=== PATIENT | male | born 1950 | race Caucasian/White ===

== ENCOUNTER → 2017-08-12 | Outpatient (CLI) | payer OTHER ==
[~2017-08-12] MED LIST: ACIPHEX20 MG PO; ADULT LOW DOSE81 MG PO; ANDROGEL2.5 GM TOP; AXIRON30 MG/1.5 TOP; LISINOPRIL10 MG PO; NEXIUM40 MG PO; PLAVIX75 MG PO; PROZAC10 MG PO; PROZAC20 MG PO; SAW PALMETTO450 MG PO; STOOL SOFTENER
--- NOTE | 2017-08-12 12:51 | Diagnostic Imaging Report ---
PROCEDURE:X-RAY UNILATERAL RIBS WITH CHEST X-RAY COMPARISON:None. INDICATIONS:LEFT SIDE RIB PAIN FINDINGS: BONES: Normal mineralization. No acute displaced fracture or dislocation. SOFT TISSUES:Negative. OTHER:Cardiac silhouette is normal in size. Aortic arch calcifications. No pleural effusions or pneumothorax. No focal consolidations. CONCLUSION: No acute displaced rib fractures. Dictated by: Terence Gibson M.D. on 08/12/2017 at 12:51 Electronically approved by: Teernce Gibson M.D. on 08/12/2017 at 12:51
== END ==
LOC: RAD 11:54
PROVIDERS: ATTEND Family Medicine
DX: S20.212A Contusion of left front wall of thorax, initial encounter (principal)
CPT/HCPCS: 71101

== ENCOUNTER → 2017-08-23 | Outpatient (CLI) | payer OTHER ==
--- NOTE | 2017-08-23 12:54 | Diagnostic Imaging Report ---
TECHNIQUE: Magnetic resonance imaging of the LEFT KNEE was performed WITHOUT injected contrast. HISTORY: Left knee pain COMPARISON: None available. FINDINGS: LIGAMENTS AND TENDONS: ACL: Intact PCL: Intact Collateral ligaments: Intact Iliotibial band: Unremarkable Popliteal tendon: Intact Extensor mechanism: Intact JOINT: Menisci: Medial: Complex tearing of the body and posterior horn. Horizontal component with flipped fragment of the posterior body into the meniscotibial recess on coronal image 13 and radial component to the posterior horn coronal image, 15 sagittal 28, and axial 23 Lateral: Intact Articular Cartilage: Medial Compartment: Diffuse high-grade cartilage loss with areas of full-thickness erosion and subchondral edema of the tibial plateau. Lateral Compartment: No focal defect. Patellofemoral Compartment: Partial-thickness cartilage loss Joint Fluid: Trace joint fluid. Minimal Fernandez's cyst. BONE: No focal or infiltrative bone marrow replacing abnormality. No acute fracture. SOFT TISSUES: Otherwise, unremarkable. IMPRESSION: Medial meniscus complex tearing as above with meniscal extrusion, high-grade cartilage loss, and subchondral edema. Signed by: Dr. Santi Banuelos M.D. on 08/23/2017 12:50 PM
== END ==
LOC: MRI 10:55
PROVIDERS: ATTEND Family Medicine
DX: S20.212A Contusion of left front wall of thorax, initial encounter (principal)

== ENCOUNTER 2019-02-09 11:10 | Observation (INO) | payer MEDICARE, OTHER ==
[~2019-02-09] VITALS: Ht 175.3 cm; Wt 96.6 kg
--- OUTSIDE RECORDS SUMMARY | 2019-02-09 11:13 | XMS REPORT ---
Author Author [facility] Address Unknown Phone Unavailable Care Team Providers Care Music Professor Name Role Phone FELIPE HARKINS Unavailable Unavailable Problems This patient has no known problems. Allergies, Adverse Reactions, Alerts This patient has no known allergies or adverse reactions. Medications This patient has no known medications. Results Test Description Test Time Test Comments Text Results Atomic Results Result Comments MRI KNEE LEFT WO [address] [address] Patient Name: LADY GUZMAN MR #: [id number] : 1950 Age/Sex: 66/M Req #: [id number] Adm Physician: Ordered by: FELIPE HARKINS MD Report #: [id number] Location: MRI Room/Bed: Procedure: [id number] MRI/MRI KNEE LEFT WO Exam Date: Exam Time: REPORT STATUS: Signed TECHNIQUE: Magnetic resonance imaging of the LEFT KNEE was performed WITHOUT injected contrast. HISTORY: Left knee pain COMPARISON: None available. FINDINGS: LIGAMENTS AND TENDONS: ACL: Intact PCL: Intact Collateral ligaments: Intact Iliotibial band: Unremarkable Popliteal tendon: Intact Extensor mechanism: Intact JOINT: Menisci: Medial: Complex tearing of the body and posterior horn. Horizontal component with flipped fragment of the posterior body into the meniscotibial recess on coronal image 13 and radial component to the posterior horn coronal image, 15 sagittal 28, and axial 23 Lateral: Intact Articular Cartilage: Medial Compartment: Diffuse high- grade cartilage loss with areas of full-thickness erosion and subchondral edema of the tibial plateau. Lateral Compartment: No focal defect. Patellofemoral Compartment: Partial-thickness cartilage loss Joint Fluid: Trace joint fluid. Minimal Fernandez's cyst. BONE: No focal or infiltrative bone marrow replacing abnormality. No acute fracture. SOFT TISSUES: Otherwise, unremarkable. IMPRESSION: Medial meniscus complex tearing as above with meniscal extrusion, high-grade cartilage loss, and subchondral edema. Signed by: Dr. Sally Morgan M.D. on 08/23/2017 12:50 PM Dictated By: SALLY MORGAN MD 1250 Transcribed By: TOM on 08/23/17 1250 COPY TO: FELIPE HARKINS MD W/CXR [place] [address] Patient Name: LADY GUZMAN MR #: [id number] : 1950 Age/Sex: 66/M Req #: [id number] Adm Physician: Ordered by: FELIPE HARKINS MD Report #: [id number] Location: [facility] Room/Bed: Procedure: [id number] DX/GRAHAM VELASQUEZ W/CXR Exam Date: 08/12/17 Exam Time: 1220 REPORT STATUS: Signed PROCEDURE: X-RAY UNILATERAL RIBS WITH CHEST X-RAY COMPARISON: None. INDICATIONS: LEFT SIDE RIB PAIN FINDINGS: BONES: Normal mineralization. No acute displaced fracture or dislocation. SOFT TISSUES: Negative. OTHER: Cardiac silhouette is normal in size. Aortic arch calcifications. No pleural effusions or pneumothorax. No focal consolidations. CONCLUSION: No acute displaced rib fractures. Dictated by: Terence Sin M.D. on 08/12/2017 at 12:51 Electronically approved by: Terence Sin M.D. on 08/12/2017 at 12:51 Dictated By: TERENCE SIN MD 1251 Transcribed By: VIDHYA on 08/12/17 1251 COPY TO: FELIPE HARKINS MD
--- OUTSIDE RECORDS SUMMARY | 2019-02-09 11:13 | XMS REPORT | Summary of Care ---
Author Author [facility] Organization [facility] Address Unknown Phone Unavailable Care Team Providers Care Publications Designer Name Role Phone PCP Unavailable Reason for Visit * Reason Comments Follow Up Encounter Details Care Team Description Date Type Department Chelsie Gordon OD 1976 [facility] [address] [place] [address] Follow Up 12/28/2018 Office Visit [facility] Ophthalmology [address] [place] [address] Allergies Comments Active Allergy Reactions Severity Noted Date Other Hives 01/04/2015 Sulfa Drugs Cross 03/26/2011 Reactors documented as of this encounter (statuses as of 12/28/2018) Medications End Date Status Medication Sig Dispensed Refills Start Date Active lisinopril (PRINIVIL, Take 10 mg by 0 ZESTRIL) 10 MG tablet mouth daily. Active Testosterone (ANDROGEL Place onto 0 TD) the skin. Active lisinopril (PRINIVIL, 0 ZESTRIL) 20 MG tablet 9 Active rabeprazole (ACIPHEX) 20 0 MG tablet 9 Active Testosterone Cypionate INJECT 0.5 5 (DEPOTESTOTERONE ML(S) 9 CYPIONATE) 100 MG/ML INTRAMUSCLULA injection RY ONCE EVERY TWO WEEKS. (DISCARD VIAL 28 DAYS AFTER OPENING). Active Clobetasol Propionate 0 0.05 % SHAM 9 Active mometasone (ELOCON) 0.1 % 0 lotion 9 Active clindamycin (CLEOCIN T) 1 Apply to 60 mL 10 % lotionIndications: affected area 9 Folliculitis twice a day Active timolol maleate Place 1 Drop 10 mL 6 (TIMOPTIC) 0.5 % into both 9 ophthalmic eyes every solutionIndications: morning. Ocular hypertension, bilateral Active alprazolam (XANAX) 0.25 0 MG tablet 9 Active aspirin EC 81 MG TBEC Take 81 mg by 0 mouth. Active Saw [place], [place] Take 160 mg 0 repens, (SAW PALMETTO by mouth. EXTRACT OR) Active ketoconazole (NIZORAL) 2 Apply to 120 mL 3 % shampoo scalp 2-3x 9 per week documented as of this encounter (statuses as of 12/28/2018) Active Problems No known active problemsdocumented as of this encounter (statuses as of 12/28/2018) Social History Date Tobacco Use Types Packs/Day Years Used Never Smoker Smokeless Tobacco: Never Used Drinks/Week oz/Week Comments Alcohol Use Yes Sex Assigned at Date Recorded Not on file Industry Job Start Date Occupation Not on file Not on file Not on file Travel End Travel History Travel Start No recent travel history available. documented as of this encounter Last Filed Vital Signs Not on filedocumented in this encounter Progress Notes * Chelsie Godron, OD - 12/28/2018 9:00 AM CDT Documented medications: No outpatient medications have been marked as taking for the 12/28/18 encounter ( Office Visit) with Chelsie Gordon, OD. No orders of the defined types were placed in this encounter. - ASSESSMENT: 1. Primary open angle glaucoma (POAG) of both eyes, indeterminate stage 2. Ocular hypertension, bilateral - PLAN: 1-2. +FOHx TMax 28, 28 Good reduction achieved today with Timolol qd OU HVF today -pt has had higher pressures in the past when using steroids -RTC 3 months IOP check and pachy STUDY/STUDIES: Visual Field Interpretation Date of VF: OD 24-2 Annalise Standard OS 24-2 Annalise Standard Reliability poor poor Results Sup nasal step Arcuate sup GHT onl onl MD -3.87 -4.88 PSD 5.04 5.72 Deterioration na na ATTESTATIONS: I have reviewed the PMH, SH, FHX, ROS, MEDS, ALLERGIES and TECH NOTE, and have u pdated the computerized patient record appropriately. The risks, benefits, and alternatives of treatment were discussed with the patie nt (& family, if present). All questions regarding diagnosis and treatment were answered to the patient's satisfaction. documented in this encounter Plan of Treatment Care Team Description Date Type Specialty Jose Roca MD [address] [place] [address] 01/03/2019 Office Visit General Surgery Chelsie Gordon, OD [address] [facility] [address] [place] [address] 03/31/2019 Office Visit Ophthalmology Health Maintenance Due Date Last Done Comments BMI FOLLOW UP PLAN 1968 HEPATITIS C SCREENING 1968 FALL SCREEN 09/20/2015 PNEUMOVAX >=65 (PPSV23) 09/20/2015 01/23/2015 PREVNAR >=65 (PCV13) 09/20/2015 TETANUS SHOT (ADULT) 10/20/2016 10/20/2006 COLON CANCER SCREENIN07/19/2018 07/19/2013 COLONOSCOPY FLU VACCINE > 6 MONTHS 12/08/2018 01/22/2016 documented as of this encounter Procedures Comments Procedure Name Priority Date/Time Associated Diagnosis FREEMAN VISUAL FIELD - Routine 12/28/2018 Ocular hypertension, OU - BOTH EYES 9:52 AM CDT bilateral documented in this encounter Results * FREEMAN VISUAL FIELD - OU - BOTH EYES (12/28/2018 9:52 AM CDT) Specimen Narrative Performed At Right Eye Reliability was poor. Progression has no prior data. Foveal threshold was normal. Findings include superior nasal step defect. Left Eye Reliability was poor. Progression has no prior data. Foveal threshold was normal. Findings include superior arcuate defect. documented in this encounter Visit Diagnoses Diagnosis Primary open angle glaucoma (POAG) of both eyes, indeterminate stage - Primary Ocular hypertension, bilateral Borderline glaucoma with ocular hypertension documented in this encounter Insurance Type Payer Benefit Subscriber ID Effective Phone Address Plan / Dates Group [facility] The Switch OPEN xxxxxxxxxxx 2017-P [address] ACC[address] resent [id number] PLUS - [place] [id number] documented as of this encounter
[2019-02-09] MEDS ORDERED: ASPIRIN 81 MG CHEW TAB PO ONE ×2 (11:30→16:45)
[2019-02-09 12:20] LABS: BILIRUBIN,URINE NEGATIVE (NEGATIVE); CLARITY,URINE CLEAR (CLEAR); COLOR,URINE YELLOW (YELLOW); KETONES,URINE NEGATIVE (NEGATIVE); LEUKOCYTE ESTERASE ,URINE NEGATIVE (NEGATIVE); NITRITE,URINE NEGATIVE (NEGATIVE); PROTEIN,URINE DIPSTICK NEGATIVE (NEGATIVE); URINE UROBILINOGEN 0.2 mg/dL (0.2 - 1)
[2019-02-09 12:25] LABS: BACTERIA,URINE RARE /HPF; EPITHELIAL CELLS,URINE FEW /LPF; RBC,URINE 0-5 /HPF (0-5); WBC,URINE (MAN) 0-5 /HPF (0-5)
--- NOTE | 2019-02-09 13:01 | Diagnostic Imaging Report ---
Chest, 1 view, 02/09/2019. History: Chest pain. Comparison: None available. Findings: The cardiomediastinal silhouette and pulmonary vasculature are within normal limits for a portable exam. There is no focal consolidation or pleural effusion. There is minimal biapical pleural thickening. There are no acute osseous or soft tissue abnormalities. Impression: No acute cardiopulmonary abnormality. Signed by: Lazaro Nicolas on 02/09/2019 12:57 PM
[2019-02-09 13:26] LABS: BASOPHILS # (AUTO) 0.1 (0.0-0.1); BASOPHILS % 1.1 % (0.0-1.0); EOSINOPHILS # (AUTO) 0.2 (0.0-0.4); EOSINOPHILS % 2.3 % (0.0-6.0); HEMOGLOBIN 13.8 g/dL (14.0-18.0); LYMPHOCYTES # (AUTO) 1.8 (1.0-3.2); LYMPHOCYTES % 23.4 % (18.0-39.1); MEAN CORPUSCULAR HEMOGLOBIN 33.3 pg (28-32); MEAN CORPUSCULAR HGB CONC 33.7 g/dL (31-35); MEAN CORPUSCULAR VOLUME 98.8 fL (81-99); MONOCYTES # (AUTO) 0.6 (0.2-0.8); MONOCYTES % 8.2 % (4.4-11.3); NEUTROPHILS # (AUTO) 4.9 (2.1-6.9); NEUTROPHILS % 64.7 % (38.7-80.0); PLATELET COUNT 192 x10e3/uL (140-360); RED BLOOD COUNT 4.15 x10e6/uL (4.3-5.7); RED CELL DISTRIBUTION WIDTH 12.4 % (11.7-14.4)
[2019-02-09 13:31] LABS: INR 0.91; PROTHROMBIN TIME 12.7 seconds (11.9-14.5)
--- NOTE | 2019-02-09 13:37 | NUR ---
H&P cc: CP HPI 68yoM, PCP , developed chest pain substernal, described as pressue. This first started with exercise (bicycle and walk). Last stress test was 2012, pt states was negative; PMH: HTN, Hypogonadism, Low Testosterone, BPH, GERD, rectal bleed, diverticulosis, Hx Cigs (40pk yrs) PShx: hernia 1984, Right hip 1995, left meniscus 2017 Allergies; see emr Fh/SH; maried; quit cigs; Meds; see MAR ROS: no f/c/s/N/V/D/dizziness/vision changes/skin rash/back pain v/s; revd PE tired appearing anicteric ns1s2 mod bs soft nt nd no e/t skin dry n. affect labs/meds; revd A/P: 68yoM Atypical CP- CE; asa/statin HTN- BB GERD- ppi BPH- eval Hx cigarette use Diverticulosis Prop: lovenox; ppi Dispo: cardiac enzymes; Murphy Rodriguez MD, PhD.
[2019-02-09 13:38] LABS: ALANINE AMINOTRANSFERASE 23 IU/L (0-55); ALBUMIN 3.8 g/dL (3.5-5.0); ALKALINE PHOSPHATASE 70 IU/L (40-150); ANION GAP 12.5 mmol/L (8-16); BLOOD UREA NITROGEN 17 mg/dL (7-26); BUN/CREATININE RATIO 18 (6-25); CALCIUM 9.6 mg/dL (8.4-10.2); CARBON DIOXIDE 28 mmol/L (22-29); CHLORIDE 101 mmol/L (98-107); CREATINE KINASE 72 IU/L (30-200); CREATININE, SERUM 0.93 mg/dL (0.72-1.25); EST GLOMERULAR FILTRATION RATE > 60 ML/MIN (60-); GLUCOSE 82 mg/dL (74-118); POTASSIUM 4.5 mmol/L (3.5-5.1); SODIUM 137 mmol/L (136-145)
[2019-02-09 13:57] LABS: CHOL/HDL RATIO 3.5 (3.9-4.7)
--- NOTE | 2019-02-09 14:14 | NUR ---
PT AMBULATORY TO RESTROOM WITHOUT DIFFICULTY, WILL CONTINUE TO MONITOR.
[2019-02-09] MEDS ORDERED: ACIPHEX20 MG (15:03)
[2019-02-09] MEDS ORDERED: TIMOPTIC 0.5%1 EACH (15:03)
[2019-02-09] MEDS ORDERED: ATORVASTATIN CA20 MG PO (15:03)
[2019-02-09] MEDS ORDERED: TESTOSTERO200 MG/11 (15:03)
[2019-02-09] MEDS ORDERED: LISINOPRIL10 MG PO (15:03)
[2019-02-09] MEDS ORDERED: ASPIRIN CHEW81 MG PO (15:03)
[2019-02-09] MEDS: SODIUM CHLORIDE 0.9% 1000ML 1,000 ML IV SCH (18:00)
[2019-02-09 18:58] VITALS: BP 125/58
--- NOTE | 2019-02-09 20:38 | NUR ---
RECEIVED PT IN BED AOX3 .DENIES CHEST PAIN .RESPIRATIONS ARE EVEN AND UNLABORED '.CALL LIGHT WITH IN REACH .CONTINUE TO MONITOR
[2019-02-09] MEDS: METOPROLOL TARTRATE 25 MG TAB PO SCH (21:23)
[2019-02-09 23:02] LABS: CREATINE KINASE MB 0.8 ng/mL (0-5.0)
[2019-02-10] VITALS (15 sets, daily range): BP systolic 115–142; BP diastolic 62–80
--- NOTE | 2019-02-10 01:08 | Consultation ---
DATE OF CONSULTATION: Cardiology Consultation CHIEF COMPLAINT: The patient is a 68-year-old with chest pain. HISTORY OF PRESENT ILLNESS: The patient has been having an uncomfortable sensation in his chest for several weeks. The patient was at the gym today and then felt uncomfortable in his chest and the episode lasted about 30 minutes. The patient has also had some shortness of breath. No nausea, no vomiting, no abdominal pain. PAST MEDICAL HISTORY: Significant for: 1. Hypertension. 2. Hyperlipidemia. MEDICATIONS: Include atorvastatin, lisinopril, AcipHex. SOCIAL HISTORY: The patient quit smoking in 2008. FAMILY HISTORY: There is no known family history of coronary artery disease. PHYSICAL EXAMINATION: GENERAL: The patient is a well-developed, well-nourished male, in no distress. VITAL SIGNS: Included temperature of 97.9, blood pressure of 125/70, pulse is 76. HEAD, EARS, EYES, NOSE, AND THROAT: The patient's cranium was normocephalic and atraumatic. Extraocular muscles were intact. Sclerae were anicteric. Pupils were equal, round, and reactive to light. There is no pallor or cyanosis of the oral mucosa. There is no erythema or edema of the throat. NECK: Supple. No jugular venous distention. No carotid bruits. CHEST: Clear to auscultation and percussion. CARDIAC: Demonstrated normal S1 and S2 with no murmurs, rubs, or gallops. ABDOMEN: Demonstrated good bowel sounds. No tenderness and no masses. EXTREMITIES: There was no clubbing, no cyanosis, and no edema. NEUROLOGICAL: The patient was alert and oriented x3. Cranial nerves II through XII were intact. Motor strength was +5/+5 in all limbs. DIAGNOSTIC DATA: The patient's EKG demonstrated normal sinus rhythm with some nonspecific ST and T-wave changes. IMPRESSION: The patient has symptoms concerning for cardiac ischemia and angina. The patient's chest pain is typical for angina. I would recommend proceeding with left heart catheterization. The risks and benefits of the procedure have been discussed with the patient and it has been scheduled for tomorrow afternoon. MD CORWIN Hoskins/MODL /[id number] cc: MD Murphy Jimenez MD
[2019-02-10] MEDS ORDERED: INFLUENZA VIRUS VAC SPLIT INJ 0.5 ML SYR IM SCH (01:55)
[2019-02-10 06:20] LABS: BASOPHILS # (AUTO) 0.1 (0.0-0.1); BASOPHILS % 0.9 % (0.0-1.0); EOSINOPHILS # (AUTO) 0.3 (0.0-0.4); EOSINOPHILS % 3.9 % (0.0-6.0); HEMATOCRIT 43.4 % (38.2-49.6); HEMOGLOBIN 13.7 g/dL (14.0-18.0); LYMPHOCYTES # (AUTO) 2.4 (1.0-3.2); LYMPHOCYTES % 30.4 % (18.0-39.1); MEAN CORPUSCULAR HGB CONC 31.6 g/dL (31-35); MEAN CORPUSCULAR VOLUME 101.4 fL (81-99); MONOCYTES # (AUTO) 0.7 (0.2-0.8); NEUTROPHILS # (AUTO) 4.4 (2.1-6.9); NEUTROPHILS % 55.4 % (38.7-80.0); PLATELET COUNT 195 x10e3/uL (140-360); RED BLOOD COUNT 4.28 x10e6/uL (4.3-5.7); RED CELL DISTRIBUTION WIDTH 12.5 % (11.7-14.4)
--- NOTE | 2019-02-10 06:36 | NUR ---
PT RESTING .PT IS NPO FOR CARDIAC CATH .DENIES CHEST PAIN .CALL LIGHT WITH IN REACH
[2019-02-10 06:55] LABS: CREATINE KINASE MB 1.7 ng/mL (0-5.0)
[2019-02-10] MEDS: SODIUM CHLORIDE 0.9% 1000ML 1,000 ML IV SCH (07:04)
[2019-02-10 07:06] LABS: INR 0.9; PROTHROMBIN TIME 12.6 seconds (11.9-14.5)
[2019-02-10 07:07] LABS: PARTIAL THROMBOPLASTIN TIME 30.5 seconds (23.8-35.5)
[2019-02-10 07:08] LABS: ANION GAP 11.8 mmol/L (8-16); BLOOD UREA NITROGEN 16 mg/dL (7-26); BUN/CREATININE RATIO 17 (6-25); CALCIUM 9.5 mg/dL (8.4-10.2); CARBON DIOXIDE 27 mmol/L (22-29); CHLORIDE 102 mmol/L (98-107); CREATININE, SERUM 0.93 mg/dL (0.72-1.25); EST GLOMERULAR FILTRATION RATE > 60 ML/MIN (60-); GLUCOSE 96 mg/dL (74-118); POTASSIUM 3.8 mmol/L (3.5-5.1); SODIUM 137 mmol/L (136-145)
--- NOTE | 2019-02-10 07:13 | NUR ---
BEDSIDE REPORT GIVEN TO THE ON COMING NURSE
[2019-02-10] MEDS ORDERED: PANTOPRAZOLE SOD 40 MG TABEC PO SCH (07:30)
--- NOTE | 2019-02-10 07:43 | Diagnostic Imaging Report ---
EXAMINATION: CHEST SINGLE (PORTABLE) INDICATION: Chest pain COMPARISON: Chest radiograph 02/09/2019 FINDINGS: AP view TUBES and LINES: None. LUNGS: Lungs are well inflated. Lungs are clear. There is no evidence of pneumonia or pulmonary edema. PLEURA: No pleural effusion or pneumothorax. HEART AND MEDIASTINUM: The cardiomediastinal silhouette is unremarkable. Aortic arch calcifications. BONES AND SOFT TISSUES: No acute osseous lesion. Soft tissues are unremarkable. UPPER ABDOMEN: No free air under the diaphragm. IMPRESSION: No acute thoracic radiographic abnormality. Signed by: Randall Thompson DO on 02/10/2019 7:40 AM
[2019-02-10] MEDS: METOPROLOL TARTRATE 25 MG TAB PO SCH (08:01)
[2019-02-10] MEDS ORDERED: ASPIRIN 325 MG TAB PO SCH (09:00)
[2019-02-10] MEDS ORDERED: LISINOPRIL 10 MG TAB PO SCH (09:00)
--- NOTE | 2019-02-10 11:09 | NUR ---
EXPLAINED OLIVEIRA TO PATIENT, PATIENT SIGNED, COPY PLACED IN CARE TRANSITIONS FOLDER, ORIGINAL PLACED IN CHART
[2019-02-10] MEDS ORDERED: FENTANYL CITRATE/PF 100MCG/2 ML INJ ONE (14:03)
[2019-02-10] MEDS ORDERED: MIDAZOLAM HCL 2 MG/2 ML VIAL ONE (14:03)
[2019-02-10] MEDS ORDERED: LIDOCAINE HCL 2% LOCAL 20 ML VIAL ONE (14:03)
[2019-02-10] MEDS ORDERED: SODIUM CHLORIDE 0.9% 1000ML 1,000 ML ONE (14:04)
[2019-02-10] MEDS ORDERED: IOPAMIDOL 370 MG/ML 200 ML INFUS..BTL INJ ONE (14:04)
[2019-02-10] MEDS ORDERED: HEPARIN SOD/SOD CHLORIDE 2,000 ML ONE (14:04)
--- NOTE | 2019-02-10 16:45 | NUR ---
1645 Bedside report received from Geoffrey AGUERO. Back to baseline orientation. Received 50 Fentanyl and 2 versed intra procedural.Alert oriented and appropriate, PERRLA, respirations even and unlabored to room air. Pulses x4 extremities equal and strong. Pedal pulses PT/DP X4 Cap fill brisk < 3 sec. Rt TR band air removal in progress Rn states 1615pm and 1630 (-3cc )from TR band device and tolerated well.Ok to continue air removal and may return to floor care.Pt had negative LHC and is ok with label rewinder Md (Dr Albert)to dc if ok with attending MD. Skin warm and dry integrity appears D/I. IV 20g to XXX presents healthy w/o s/s of infiltration but has c/o tenderness Iv fluids off encouraged to drink additional 2cups H20 today.No CP or SOB Abdomen soft and supple. pt offered toileting, denies need to urinate or defecate. No personal affects with patient. Family in room. Pt verbalizes understanding of POC. Reviewed teaching tool regarding radial occlusive device care and has copies of diagram of heart from Dr Albert also. Currently w/o complaint of pain or need. Voids qs tolerating po intake. ds/rn
[2019-02-10] MEDS ORDERED: ENOXAPARIN SOD INJ 40 MG/0.4 ML SYR SC SCH (17:00)
--- NOTE | 2019-02-10 17:00 | NUR ---
1700ADIAL Compression removal: Initial Cuff volume 10 cc 1600pm -3 cc Removed No hematoma/bleeding noted with normal neurovascular function. 1615pm -3 cc Removed No hematoma/ bleeding noted with normal neurovascular function. 1645 -2cc Removed No hematoma/bleeding noted with normal neurovascular function. 1700pmAir removal completed. Report phoned and handoff to Eli AGUERO Stasis achieved sterile 2x2,Tegaderm, Coban dressing No hematoma, bleeding noted with normal neurovascular function. Wrist splint in place. Pt instructed on POC. Ds/Rn
--- NOTE | 2019-02-10 17:10 | NUR ---
1700pm Transported pt via stretcher and Zoll monitor Report provided to Ash AGUERO and Eli matzo forming machine operator of procedural findings and medications given. Patient awake and back to baseline and ready for dc if ok with primary Md. Rt arm splint reminder in place and no gross issues pain pallor or pressure. received tr band care info. and reviewed care with pt and and nursing staff at bedside. Vs stable Pt aware of importance and f/o care. Left pt room pt sitting on side of bed preparing for DC Rnx2 at bedside bed in low position call light at bedside. ds/rn
[2019-02-10] MEDS ORDERED: TAMSULOSIN HCL 0.4 MG CAP PO SCH (21:00)
[2019-02-10] MEDS ORDERED: ATORVASTATIN 20 MG TAB PO SCH (21:00)
--- NOTE | 2019-02-10 22:09 | Operative Report ---
DATE OF PROCEDURE: SURGEON: Dmitry Albert MD PREOPERATIVE DIAGNOSIS: Coronary artery disease. POSTOPERATIVE DIAGNOSIS: Coronary artery disease. PROCEDURE: Left heart catheterization. COMPLICATIONS: None. ANESTHESIA: Versed, fentanyl, and lidocaine. DESCRIPTION OF PROCEDURE: The right wrist was draped and prepped in the usual fashion. The area was anesthetized with lidocaine. Standard Seldinger technique was used to place a 6-Moroccan sheath into the right radial artery without difficulty. A TIG catheter was used to selectively engage the right coronary artery and to selectively engage the left coronary artery. The left ventriculogram was not done. RESULTS: As follows: 1. There is a normal left main trunk. 2. There is a large left anterior descending artery with minimal coronary artery disease. 3. There was a medium-sized AV circumflex artery, which gave rise to a large bifurcating obtuse marginal branch. There was minimal disease in the circumflex system. 4. There was a large dominant right coronary artery with minimal disease. 5. The left ventriculogram was not done, but the patient had normal left ventricular size and function on echocardiogram. CONCLUSION: Minimal coronary artery disease. Dmitry Albert MD [facility]/MODL /[id number] cc: Murphy Rodriguez MD
== END 2019-02-10 17:40 | disposition home or self-care (01) ==
LOC: ER 11:14 → ERHOLD 16:45 → MED/SURG 18:53
PROVIDERS: ADMIT Internal Medicine; ATTEND Internal Medicine
DX: I25.10 Atherosclerotic heart disease of native coronary artery without angina pectoris (principal); R07.89 Other chest pain; K21.9 Gastro-esophageal reflux disease without esophagitis; N40.0 Benign prostatic hyperplasia without lower urinary tract symptoms; K57.90 Diverticulosis of intestine, part unspecified, without perforation or abscess without bleeding; I10 Essential (primary) hypertension; Z88.2 Allergy status to sulfonamides; Z88.8 Allergy status to other drugs, medicaments and biological substances; Z83.3 Family history of diabetes mellitus; Z82.49 Family history of ischemic heart disease and other diseases of the circulatory system; E78.5 Hyperlipidemia, unspecified; Z87.891 Personal history of nicotine dependence
CPT/HCPCS: 36415 ×2; 71045 ×2; 80048; 80053; 80061; 81001; 82550 ×2; 82553 ×2; 83036; 84484 ×2; 85025 ×2; 85610 ×2; 85730 ×2; 93005 ×2; 93306; 93454; 99284; C1769; G0378 ×2; J2001; J2250; J3010; J7030 ×2; Q9967; S0164

== ENCOUNTER → 2020-02-14 | Day surgery (SDC) | payer MEDICARE, OTHER ==
[~2020-02-14] MED LIST changes: +ACIPHEX20 MG; +ASPIRIN CHEW81 MG PO; +ASPIRIN81 MG PO; +ATORVASTATIN CA20 MG PO; +CALCIUM CARBON500 MG PO; +FENTANYL CITRATE/PF 100MCG/2 ML INJ ONE; +FINASTERIDE5 MG PO; +GLUCOSAMINE1000 MG PO; +HEMP OIL PO; +HYOSCYAMINE 0.125 MG TAB ONE; +LIDOCAINE HCL 2% LOCAL INJ 5 ML SDV VIAL INJ ONE; +MIDAZOLAM HCL 2 MG/2 ML VIAL ONE; +PROPOFOL IV EMULSION 10 MG/ML 20 ML VIAL ONE; +SUPER B-50 COM1 EACH PO; +TESTOSTERO200 MG/11; +TIMOPTIC 0.5%1 EACH OU; +VITAMIN D310 MC1 PO
[2020-02-14 11:45] VITALS: BP 117/67
--- NOTE | 2020-02-14 12:38 | Operative Report ---
DATE OF PROCEDURE: 02/14/2020 SURGEON: Tomy Kc MD PROCEDURES: EGD with biopsies, and a colonoscopy with polypectomy. 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 INDICATIONS FOR COLONOSCOPY: Surveillance colonoscopy, personal history of colon polyps. MEDICATIONS: The patient was done under MAC, please see anesthesiologist's note. PROCEDURE IN DETAIL: With the patient in left lateral decubitus position, a flexible fiberoptic Olympus gastroscope was introduced into the esophagus under direct visualization without any difficulty. A minute tongue of velvety red mucosa was noted to extend proximally from the GE junction. Biopsies were obtained. The scope was then advanced with ease into the stomach, traversing a small sliding hiatal hernia. Mucosa overlying the antrum and the body revealed some patchy erythema and [id number] edema, and biopsies were obtained, sent to stain for H. pylori. Approximately, 9 mm submucosal nodule was noted in the antrum, that was biopsied. Pylorus was of normal contour and shape, it was intubated with ease and the scope was advanced all the way to the second portion of the duodenum. Minute nodule was noted in the proximal second portion of the duodenum, that was biopsied. Mucosa overlying the duodenal bulb grossly appeared to be within normal limits. The scope was then withdrawn back into the stomach and retroflexed, mucosa overlying the fundus and cardia appeared to be within normal limits. The scope was then straightened out, it was subsequently withdrawn. The patient tolerated the procedure well. IMPRESSION: 1. Minute tongue of Barry's esophagus, biopsied. 2. Small sliding hiatal hernia. 3. Gastritis, biopsied, biopsies sent to stain for H. pylori. 4. Approximately, 9 mm submucosal nodule, antrum biopsied. 5. Minute nodule, proximal second portion, biopsied. PLAN: 1. Follow up histology. 2. Initiate AcipHex 20 mg one p.o. q.a.m. a.c. DESCRIPTION OF PROCEDURE: The patient was then turned around after adequate lubrication of the anal canal, a flexible fiberoptic Olympus colonoscope was inserted into the rectum with ease and advanced all the way to the cecum. It was then withdrawn slowly, mucosa overlying the cecum grossly appeared to be within normal limits. Of note, there were some retained stools in the colon. The prep overall was suboptimal, but visualization was fair. Whatever was visualized, the mucosa overlying the ascending appeared to be within normal limits. Two minute polyps were hot biopsied from the transverse colon. One polyp was hot biopsied from the descending colon. Minimal diverticulosis was noted in the sigmoid colon. Rectum appeared to be within normal limits. The scope was then retroflexed into the distal rectum, the area around the dentate line appeared to be within normal limits. The scope was then straightened out, it was subsequently withdrawn. The patient tolerated the procedure well. IMPRESSION: 1. Suboptimal prep, but visualization was fair. 2. Transverse colon polyps x2, hot biopsied. 3. Descending colon polyp, hot biopsied. 4. Diverticulosis, sigmoid colon, minimal. PLAN: 1. Followup histology. 2. Initiate high-fiber, low-fat diet. 3. Initiate high-fiber supplement. 4. The patient might benefit from a followup colonoscopy in 3 years. Tomy Kc MD [facility] /[id number] cc: Yifan Mei MD
== END | disposition home or self-care (01) ==
LOC: OR 07:25
PROVIDERS: ATTEND Internal Medicine Gastroenterology
DX: K22.70 Barrett's esophagus without dysplasia (principal); D12.3 Benign neoplasm of transverse colon; K29.60 Other gastritis without bleeding; K20.80 Other esophagitis without bleeding; K31.89 Other diseases of stomach and duodenum; K21.9 Gastro-esophageal reflux disease without esophagitis; K57.30 Diverticulosis of large intestine without perforation or abscess without bleeding; K44.9 Diaphragmatic hernia without obstruction or gangrene; J45.909 Unspecified asthma, uncomplicated; I10 Essential (primary) hypertension; F41.9 Anxiety disorder, unspecified; Z88.2 Allergy status to sulfonamides; Z88.6 Allergy status to analgesic agent; Z88.8 Allergy status to other drugs, medicaments and biological substances; Z01.812 Encounter for preprocedural laboratory examination; Z11.59 Encounter for screening for other viral diseases; Z79.82 Long term (current) use of aspirin; Z68.37 Body mass index [BMI] 37.0-37.9, adult; Z87.01 Personal history of pneumonia (recurrent)
CPT/HCPCS: 43239; 45384; 88305; 88312; J2001; J2250; J2704; J3010; U0002; 45378